=== PATIENT | male | born 1970 | race Caucasian/White ===

== ENCOUNTER → 2016-11-27 | Day surgery (SDC) | payer OTHER ==
[~2016-11-27] MED LIST: ALKA-SELTZER125 MG PO; BENICAR PO; FISH OIL 1,2001 EAC2 PO; METHOCARBAMOL500 MG PO; TUSSIONEX PENN473 ML PO; TYLOX 5-500 CA1 EACH PO; VICODIN ES 7.51 EAC1 PO; ZITHROMAX1 G/PKT PO
--- NOTE | ~2016-11-27 | OR ---
Unit #: [id number] #: [id number] Patient: BASSEM CHAPA [id number] [address] [place], [place] [address] [id number] O MR#: [id number] NAME: BASSEM CHAPA ROOM: Date of Procedure: 11/27/2016 Admission Date: 11/27/2016 Surgeon: Vinayak Viramontes M.D. : 1970 Attending Physician: Gary Viramontes Primary Care Physician: Costa Lopez M.D. [facility] CENTER OPERATIVE NOTE PROCEDURE PERFORMED Lumbar epidural steroid injection under x-ray guided needle placement with provider administered conscious sedation. PREOPERATIVE DIAGNOSES 1. Acute lumbar radiculitis. 2. Spinal stenosis, lumbosacral spine. 3. Herniated disk, L4-L5. 4. Herniated disk, L5-S1. 5. Degenerative joint disease, lumbosacral spine. 6. Degenerative disk disease, lumbosacral spine. 7. Facet arthrosis, lumbosacral spine. 8. Acute facet arthralgia, lumbosacral spine. INDICATIONS FOR PROCEDURE The patient presents today with year-long history of intermittent radicular pain as well as facet arthralgia pain. He states his symptoms are becoming more progressive overtime as they are more frequent in occurrence, the duration when present is longer. It has reached a point that are interfering with his activities of daily living and he presents today in possession of an MRI report, which shows the abnormalities of multiple levels, however most notably at the L4-L5 and L5-S1. We are also referring this patient to [facility] for potential radiofrequency ablation as in addition to his radicular pain, he has complaints compatible with rather acute and severe facet arthralgia, which coincides with his x-ray findings of L4-L5 and L5-S1 facet arthrosis. After discussing risks and benefits of proceeding today with a lumbar approach epidural steroid injection, the patient agreed this would be the appropriate course of action. DESCRIPTION OF PROCEDURE He was then taken to the operating room, where he was prepped and draped in a sterile manner. Standard monitors were applied. He was sedated with 2 mg of IV Versed initially and required additional 2 mg of IV Versed throughout the duration of procedure. Lumbar epidural space was accessed at the L4-L5 level using loss of resistance technique and x-ray guidance. Needle placement was confirmed with injection of 2 mL of Omnipaque. There was good superior and inferior flow at this L4-L5 placement level. Total x-ray time for this needle placement was 6 seconds. Following successful needle placement confirmation, the patient received an injectate containing 2 mL normal saline, 2 mL of 0.25% bupivacaine, and 80 mg of methylprednisolone. He tolerated this procedure well. He was discharged home with followup instructions, which include return to this clinic on 12/11/2016 as well as with referral to [facility]. Unit #: [id number] #: [id number] Patient: BASSEM CHAPA Dictated by... Prince Tyler/asif TD: 11/28/2016 03:16 JOB #: [id number] CC: Rocco Medina M.D. SUR[facility] CENTER OPERATIVE NOTE Page 1 of 1 X Gary Viramontes MD X PROCEDURE OPERATIVE NOTE
== END | disposition home or self-care (01) ==
LOC: CCSC 11:37
DX: M51.17 Intervertebral disc disorders with radiculopathy, lumbosacral region (principal); M47.27 Other spondylosis with radiculopathy, lumbosacral region; M48.07 Spinal stenosis, lumbosacral region; Z90.49 Acquired absence of other specified parts of digestive tract; Z90.89 Acquired absence of other organs
CPT/HCPCS: J1040; J2250

== ENCOUNTER → 2016-12-11 | Day surgery (SDC) | payer OTHER ==
--- NOTE | ~2016-12-11 | OR ---
Unit #: [id number] #: [id number] Patient: BASSEM CHAPA [id number] [address] [address] [id number] O MR#: [id number] NAME: BASSEM CHAPA ROOM: Date of Procedure: 12/11/2016 Admission Date: 12/11/2016 Surgeon: Vinayak Viramontes M.D. : 1970 Attending Physician: Vinayak Viramontes M.D. Primary Care Physician: Costa Lopez M.D. SUR[facility] CENTER OPERATIVE NOTE PROCEDURE PERFORMED Lumbar epidural steroid injection under x-ray guided needle placement. PREOPERATIVE DIAGNOSES 1. Acute lumbar radiculitis. 2. Spinal stenosis, lumbosacral spine. 3. Herniated disk, L3-4, L4-5, and L5-S1. 4. Degenerative joint disease, lumbosacral spine. 5. Degenerative disk disease, lumbosacral spine. INDICATIONS FOR PROCEDURE The patient presents today status post one previous lumbar approach epidural steroid injection for an acute radiculitis, which had failed to respond to conservative measures. The patient states he got great results with almost complete initial relief of his pain. However, over the course of the intervening time between his initial injection and today, his pain has returned in a crescendo pattern. He is reaching a point where it is interfering with his activities of daily living. After discussing risks and benefits of proceeding today with lumbar epidural steroid injection utilizing dual-needle access technique, the patient agreed this would be the appropriate course of action. DESCRIPTION OF PROCEDURE Following this discussion, he was taken to the operating room, where he was prepped and draped in sterile manner. Standard monitors were applied. He was sedated initially with 2 mg of IV Versed and required an additional 2 mg of IV Versed throughout the duration of procedure. Lumbar epidural space was accessed at the L5-S1 and L3-4 levels using loss of resistance technique and x-ray guidance. Needle placement was confirmed with the injection of 2 mL at each location. There was good superior and inferior flow at both needle placement locations. Total x-ray time for this dual-needle placement technique was 8 seconds. Following successful needle placement confirmation, the patient received an injectate containing 4 mL of normal saline and 40 mg of methylprednisolone at each level for a total injectate volume of 8 mL of normal saline and 80 mg of methylprednisolone. He tolerated this procedure well. He was discharged home with followup instructions, which include return to this clinic as early as 03/19 if we could be of further service to him. Dictated by... Vinayak Viramontes M.D. Unit #: [id number] #: [id number] Patient: BASSEM CHAPA TRACY/asif TD: 12/11/2016 21:32 JOB #: [id number] CC: Rocco Medina M.D. SUR[facility]ERY CENTER OPERATIVE NOTE Page 1 of 1 X Gary Viramontes MD X PROCEDURE OPERATIVE NOTE
== END | disposition home or self-care (01) ==
LOC: CCSC 08:30
DX: M51.16 Intervertebral disc disorders with radiculopathy, lumbar region (principal); M51.17 Intervertebral disc disorders with radiculopathy, lumbosacral region; M48.07 Spinal stenosis, lumbosacral region
CPT/HCPCS: J1040; J2250

== ENCOUNTER → 2017-03-19 | Day surgery (SDC) | payer OTHER ==
--- NOTE | ~2017-03-19 | OR ---
Unit #: [id number] #: [id number] Patient: BASSEM CHAPA [id number] [address] [place], [place] [address] [id number] O MR#: [id number] NAME: BASSEM CHAPA ROOM: Date of Procedure: 03/19/2017 Admission Date: 03/19/2017 Surgeon: Vinayak Viramontes M.D. : 1970 Attending Physician: Gary Viramontes Primary Care Physician: Costa Lopez M.D. SUR[facility] CENTER OPERATIVE NOTE PROCEDURE PERFORMED Lumbar epidural steroid injection under x-ray guided needle placement with provider administered conscious sedation. PREOPERATIVE DIAGNOSES 1. Acute lumbar radiculitis. 2. Spinal stenosis, lumbosacral spine. 3. Herniated disk, L4-L5. 4. Degenerative joint disease, lumbosacral spine. 5. Degenerative disk disease, lumbosacral spine. 6. Facet arthrosis, lumbosacral spine. INDICATIONS FOR PROCEDURE The patient presents today status post 2 previous lumbar approach epidural steroid injections as well as one initial evaluation by the [facility] for potential radiofrequency ablation. The patient states he got good relief with his epidural steroid injection from the radicular component of his pain with approximately 60% to 80% for 6 to 8 weeks. He states that he felt his visit to the [facility] did not go well, understands that he was not sure that he understood their questions or his answers were correct at the time of his visit to the point that he was requesting if he could again be seen by the [facility] as he felt there was relief to be at best. I agreed with his assessment and instructed him to give the practice a call and to let them know that he was a previous patient of theirs and that he was desired to be re-evaluated, also stated if he was unable to get in to see them based on that he could get this clinic a call, we would re-refer. As far as today's visit, we discussed risks and benefits of proceeding today with a lumbar approach epidural steroid injection and return to this clinic on 06/25/2017, the patient agreed that would be the appropriate course of action. DESCRIPTION OF PROCEDURE He was then taken to the operating room, where he was prepped and draped in a sterile manner. Standard monitors were applied. He was sedated with 2 mg of IV Versed and required an additional 2 mg of IV Versed throughout the duration of procedure. Lumbar epidural space accessed at the L4-L5 level using loss of resistance technique and x-ray guidance. Needle placement was confirmed with injection of 2 mL of Omnipaque. There was good superior and inferior flow at this L4-L5 level placed needle. Following successful needle placement confirmation, the patient received an injectate containing 4 mL normal saline and 80 mg of methylprednisolone. He tolerated this procedure well. He was discharged home with followup instructions, which include those described above. Unit #: [id number] #: [id number] Patient: BASSEM CHAPA Dictated by... Vinayak Viramontes M.D. JRG/asif TD: 03/19/2017 14:38 JOB #: [id number] CC: Rocco Medina M.D. SUR[facility] CENTER OPERATIVE NOTE Page 1 of 1 X Gary Viramontes MD X PROCEDURE OPERATIVE NOTE
== END | disposition home or self-care (01) ==
LOC: CCSC 09:15
DX: M51.17 Intervertebral disc disorders with radiculopathy, lumbosacral region (principal); M51.16 Intervertebral disc disorders with radiculopathy, lumbar region; M47.27 Other spondylosis with radiculopathy, lumbosacral region; M48.07 Spinal stenosis, lumbosacral region; Z79.899 Other long term (current) drug therapy; Z90.49 Acquired absence of other specified parts of digestive tract; Z98.890 Other specified postprocedural states
CPT/HCPCS: J1040; J2250